=== PATIENT | female | born 1955 | race Caucasian/White ===

== ENCOUNTER 2019-08-10 17:02 | Observation (INO) | payer OTHER ==
--- NOTE | 2019-08-10 18:07 | RAD REPORT ---
EXAM DESCRIPTION: Nate Doe (2 Views)08/10/2019 5:56 pm CLINICAL HISTORY: Chest pain COMPARISON: 2013 FINDINGS: The lungs appear clear of acute infiltrate. The heart is normal size IMPRESSION: No acute abnormalities displayed
[2019-08-10 18:39] LABS: Absolute Lymphocytes (CBC) 2.5 K/uL (0.7-4.9); Basophils % 1.2 % (0-1.3); Hematocrit 39.1 % (36.0-45.0); Lymphocytes % 38.7 % (15.3-44.8); RBC Red Blood Cell Count 4.27 M/uL (3.86-4.86)
[2019-08-10 18:56] LABS: ALT/SGPT 32 U/L (12-78); AST/SGOT 22 U/L (15-37); Albumin 3.6 g/dL (3.4-5.0); Alkaline Phosphatase 123 U/L (45-117); BUN Blood Urea Nitrogen 19 mg/dL (7-18); Bicarbonate 28 mmol/L (21-32); Bilirubin Total 0.3 mg/dL (0.2-1.0); CKMB Creatine Kinase MB < 1.0 ng/mL (0.3-3.6); Creatine Phosphokinase 60 U/L (26-192); Glucose Level 111 mg/dL (74-106); Magnesium 2.4 mg/dL (1.8-2.4); Potassium 4.1 mmol/L (3.5-5.1); Protein, Total 6.9 g/dL (6.4-8.2); Sodium Level 143 mmol/L (136-145); Troponin I < 0.02 ng/mL (0.0-0.045)
[2019-08-10] MEDS ORDERED: INFLUENZA VACCINE (for 3y+) 0.5 ML DOSE IMVAC ONE (21:00)
[2019-08-10 21:46] VITALS: BMI 27.2
[2019-08-10 22:08] LABS: Urine Appearance CLEAR; Urine Bilirubin NEGATIVE (NEG); Urine Blood NEGATIVE (NEG); Urine Color YELLOW; Urine Glucose NEGATIVE (NEG); Urine Protein NEGATIVE (NEG); Urine Urobilinogen 0.2 mg/dL (0.2-1.0)
[2019-08-10 22:15] LABS: Urine Microscopic Reflex NO UMIC
--- NOTE | 2019-08-11 06:51 | HP ---
Date of Admission: 08/10/2019 Chief Complaint: Chest pain. History Of Present Illness: This is a 64-year-old pleasant female patient, came into office with complaints of chest pain and a decision was made to admit her to the hospital. Patient has had few episodes of chest pain in the last 1 week to 2 weeks, not associated with any activity or meal. Pain is localized in the chest, does not radiate anywhere. No associated dyspnea, nausea, vomiting, diaphoresis. Denies any palpitation. No fall. No injury. No rash. No cough, cold, congestion type of illness recently. Decision was made to admit her to hospital with these concerns about chest pain. She describes her chest pain located in the center of her chest and it may last for about 5 minutes or so. Allergies: TO AMOXICILLIN CAUSING RASH AND HIVES, CEPHALEXIN CAUSING RASH AND HIVES, AND SULFA ALSO CAUSING RASH AND HIVES. Review of Systems: Cardiovascular: As mentioned above. All other systems reviewed and negative. Medications: She takes Finley, sertraline, duloxetine, and Proventil inhaler. Past Medical History: Significant for asthma, hyperlipidemia, constipation, adrenal adenoma, osteoarthritis, anemia, anxiety, depression. Past Surgical History: Significant for gastric bypass surgery, ethmoidectomy, cholecystectomy, hysterectomy, lower back surgery, carpal tunnel syndrome surgery, knee surgery. Family History: Father had arthritis, coronary artery disease, myocardial infarction, and hypertension. Mother had ovarian cancer and hypertension. Sister, thyroid disorder. Social History: Negative for smoking and alcohol use. Physical Examination: Vital Signs: Reviewed. Temperature 97.6, pulse 69, respiratory rate 16, blood pressure 121/60, height 5 ft, 2 inches, weight 149 lbs. General: Awake, alert, oriented, not in distress. HEENT: Head atraumatic, normocephalic. Conjunctivae nonerythematous. Sclerae white. Mouth, no thrush or edema noted. Ears/Nose, no mass, lesion, discharge noted. Neck: Supple. No JVD, lymph nodes, bruit, thyromegaly noted. Lungs: Bilateral good equal air entry. Clear to auscultation. No rhonchi. No rales. Heart: Normal heart sounds, no murmur or gallop. Abdomen: Soft, bowel sounds normal. No guarding, rigidity, tenderness, mass, hepatosplenomegaly, distention, or bruit noted. Extremities: No leg edema. No calf tenderness. Skin: No rash, ulcer, cellulitis. Lymphatics: No lymph node enlargement in neck, supraclavicular, infraclavicular region. Neuro: No focal neurological deficit. Chest: Unremarkable. External Genitalia: Deferred. Rectal: Deferred. Laboratory Data: EKG: Normal sinus rhythm, normal EKG. Chest x-ray, no acute cardiopulmonary changes. WBC 6.6, hemoglobin 13, platelet 236. Sodium 143, potassium 4.1, chloride 109, bicarb 28, glucose 111, BUN 19, creatinine 1.0. Impression: 1. Chest pain. 2. Anxiety. 3. Depression. 4. Hyperlipidemia. 5. Osteoarthritis, multiple sites. Plan: Admit patient to hospital for further evaluation and management of this problem. Patient is appropriate for observation. We will admit her to telemetry floor. Home medications will be continued per order. We will get cardiac enzymes on her and plan is to do stress test and echocardiogram tomorrow morning. Details and plan of treatment discussed with the patient. MARIELY/PRABHU Voice ID: [id number] MTDD
[2019-08-11] MEDS ORDERED: REGADENOSON 0.4 MG/5 ML SYR IV ONE (08:32)
--- NOTE | 2019-08-11 10:25 | RAD REPORT ---
EXAM DESCRIPTION: NM - Rest Stress Cardiac Imaging - 08/11/2019 10:15 am CLINICAL HISTORY: Chest pain COMPARISON: None. TECHNIQUE: The patient was administered approximately 10 mCi of Tc 99m Sestamibi prior to resting SP ECT imaging of the heart. The patient was then administered approximately 30 mCi of Tc 99m Sestamibi following exercise or pharmacologic stress. Multiplanar SPECT images were reviewed. FINDINGS: The end diastolic volume is 67 ml, the end systolic volume is 17 ml, and the ejection frac tion is 74 %. Physiologic distribution of the radiopharmaceutical through the myocardium is noted. No stress induce d ischemic defect is seen to suggest stress induced ischemia. No fixed defect is seen to suggest hibe rnating myocardium or scarred myocardium. IMPRESSION: No stress induced ischemia or other suspicious findings. Ventricular volumes and ejection fraction normal range.
--- NOTE | 2019-08-11 10:42 | ECHO ---
HEIGHT: 5 ft 2 in WEIGHT: 149 lb 0 oz DATE OF STUDY: 08/11/[address]: Jerrod Ferris MD 2-DIMENSIONAL: YES M.MODE: YES DOPPLER: YES COLOR FLOW: YES TDS: NO PORTABLE: NO DEFINITY: NO BUBBLE STUDY: NO DIAGNOSIS: CHEST PAIN CARDIAC HISTORY: CATHERIZATION: NO SURGERY: NO PROSTHETIC VALVE: NO PACEMAKER: NO MEASUREMENTS (cm) DIASTOLIC (NORMALS) SYSTOLIC (NORMALS) IVSd 1.0 (0.6-1.2) LA Diam 2.6 (1.9-4.0) LVEF 82% LVIDd 3.4 (3.5-5.7) LVIDs 1.7 (2.0-3.5) %FS 50% LVPWd 1.0 (0.6-1.2) Ao Diam 2.3 (2.0-3.7) 2 DIMENSIONAL ASSESSMENT: RIGHT ATRIUM: NORMAL LEFT ATRIUM: NORMAL RIGHT VENTRICLE: NORMAL LEFT VENTRICLE: NORMAL TRICUSPID VALVE: NORMAL MITRAL VALVE: NORMAL PULMONIC VALVE: NORMAL AORTIC VALVE: NORMAL PERICARDIAL EFFUSION: NONE AORTIC ROOT: NORMAL LEFT VENTRICULAR WALL MOTION: NORMAL DOPPLER/COLOR FLOW: NORMAL COMMENTS: NORMAL 2D ECHOCARDIOGRAM WITH DOPPLER. TECHNOLOGIST: Radu GARCES
--- NOTE | 2019-08-11 10:47 | TREADPHA ---
DX: CHEST PAIN Date of Study: 08/11/2019 Ht: 5 2 Wt: 149 lb 0 oz Consulting Physician: POLO MEDICATIONS: ZOLOFT, CYMBALTA, HYDROCODONE HISTORY: 64 YEAR OLD FEMALE WITH COMPLAINTS OF CHEST PAIN. HISTORYOF SPINAL FUSION, CHRONIC BACK PAIN AND GASTRIC BYPASS. PHYSICIAL EXAMINATION: RESTING B.P.: 119/72 RESTING H.R.: 57 RESTING EKG: SINUS BRADYCARDIA, OTHERWISE NORMAL. PROTOCOL: LEXISCAN EXERCISE TIME: 3:30 B.P. AT [place]AK STRESS: 104/63 IMPRESSION: LEXISCAN STRESS TEST PERFORMED PER PROTOCOL. CARDIOLITE INJECTED PER PROTOCOL. NO SUPRAVENTRICULAR TACHYCARDIA. NO VENTRICULAR TACHYCARDIA. NO ARRYTHMIAS NOTED. PATIENT DENIED CHEST PAIN. TOLERATED TEST WELL. SEE NUCLEAR MEDICINE REPORT. NON DIAGNOSTIC EKG WITH LEXISCAN STRESS.
[2019-08-11 11:36] VITALS: O2SAT 98
[2019-08-11 12:17] VITALS: BP 118/58; TEMP 97.2
--- NOTE | 2019-08-12 05:16 | DS ---
Date of Discharge: 08/11/2019 Disposition: Discharged to go home. Physical Examination: HEENT: Unremarkable. Lungs: Clear to auscultation. Heart: Sounds normal. Abdomen: Soft. Bowel sounds normal. No guarding, rigidity, tenderness, or distention. Extremities: No leg edema. Discharge Medications And Instructions: 1.Continue all prior home medication. 2.Take pantoprazole 40 mg p.o. daily as prescribed, which is to be taken 30 minutes before breakfast with water. 3.Follow up at my office in 2 weeks. Hospital Course: 64-year-old female patient admitted to hospital with chest pain problem. Please se e dictated H and P for more information. Patient was admitted to the hospital directly with this com plaint of chest pain. After she was admitted, her EKG and chest x-ray both were negative. Blood wor k was unremarkable. Cardiac enzymes normal. Patient had Lexiscan stress test done today, which was negative for any stress-induced ischemia. Echocardiogram showed normal ejection fraction. It was no rmal echocardiogram. She was asymptomatic today. It is possible that her chest pain is likely due t o gastroesophageal reflux disease and we will go ahead and try pantoprazole. I will see her at [facility] in 2 weeks for followup. Final Diagnoses: 1.Chest pain. 2.Anxiety. 3.Depression. 4.Hyperlipidemia. 5.Osteoarthritis, multiple sites. MARIELY/MODL Voice ID: [id number] Report ID: [id number]
== END 2019-08-11 15:12 | disposition home or self-care (01) ==
LOC: 2ND 17:04
PROVIDERS: ADMIT Internal Medicine; ATTEND Internal Medicine
DX: R07.9 Chest pain, unspecified (principal); F41.8 Other specified anxiety disorders; E78.5 Hyperlipidemia, unspecified; M19.90 Unspecified osteoarthritis, unspecified site; Z98.84 Bariatric surgery status; Z88.0 Allergy status to penicillin; Z88.2 Allergy status to sulfonamides
CPT/HCPCS: 93005; 93017; 93306; 85025; 36415; 83735; 82550; 84443; 81003; 84484; 82553; 80053; 71046; 78452; J2785; A9500; G0379; G0378 ×3